=== PATIENT | male | born 1990 | race African-American/Black ===

== ENCOUNTER 2017-05-25 07:37 | Emergency (ER) | payer SELFPAY ==
[~2017-05-25] VITALS: Ht 185.4 cm; Wt 70.6 kg
[2017-05-25 08:25] LABS: BASOPHIL (%) 0.2 % (0-1); EOSINOPHIL (%) 0.9 % (0-5); EOSINOPHIL COUNT 0.1 K/uL (0-0.3); HEMATOCRIT 43.8 % (38.0-50.0); HEMOGLOBIN 14.8 G/DL (12.5-16.6); IMMATURE GRANULOCYTE (%) 0.4 % (0.0-0.7); LYMPHOCYTE (%) 18.3 % (15-42); MCH 29.3 PG (29.0-34.0); MCHC 33.8 G/DL (30.0-36.0); MCV 86.7 FL (86-99); MONOCYTE COUNT 0.5 K/uL (0-0.8); NEUTROPHIL (%) 71.2 % (45-76); PLATELET COUNT 222 K/uL (156-360); RBC DIS.WIDTH-CV 12.3 % (11.8-14.6); RBC DIS.WIDTH-SD 39.1 % (39-53); RED BLOOD COUNT 5.05 M/uL (4.00-5.50); WHITE BLOOD COUNT 5.6 K/uL (4.1-10.2)
[2017-05-25 08:54] LABS: CHLORIDE 107 mEq/L (99-109); POTASSIUM 4.1 mEq/L (3.7-5.4); SODIUM 141 mEq/L (136-147)
[2017-05-25 08:56] LABS: GLUCOSE 117 mg/dL (70-99)
[2017-05-25 09:00] LABS: UREA NITROGEN (BUN) 23 mg/dL (9-23)
[2017-05-25 09:02] LABS: LIPASE 18 U/L (1.0-51.0)
[2017-05-25 09:19] LABS: CREATININE 1.1 mg/dL (0.6-1.3); GFR ESTIMATE (CALCULATED) > 59 mL/min/ (58.99-99999)
[2017-05-25] MEDS ORDERED: IMODIUM A-D2 M2 PO (09:36)
[2017-05-25] MEDS ORDERED: ZOFRAN4 MG PO (09:36)
[2017-05-25] MEDS ORDERED: BENTYL20 MG PO (09:36)
[2017-05-25 09:52] VITALS: BP 110/72
== END 2017-05-25 09:54 | disposition home or self-care (01) ==
LOC: EME 07:37 → EDBD 07:37 → EME 09:54
PROVIDERS: Emergency Medicine
DX: K52.9 Noninfective gastroenteritis and colitis, unspecified (principal)
CPT/HCPCS: 80048; 83690; 85025; 99281; 99284; J1885; J2405; J7030